=== PATIENT | female | born 1965 | race Caucasian/White ===

== ENCOUNTER → 2020-01-31 09:09 | Outpatient (CLI) | payer OTHER, SELFPAY ==
--- NOTE | ~2020-01-31 | MR_ITS ---
EXAMINATION: MR foot LT wo con DATE: 01/31/2020 09:47 INDICATION: Left foot pain. TECHNIQUE: Magnetic resonance imaging (MRI) of the left fore/mid foot was performed without intraveno us contrast. Sequences included sagittal T1-weighted FSE, sagittal fluid sensitive FSE STIR, coronal PD-weighted FS FSE, coronal T1-weighted FSE, axial PD-weighted FS FSE, and axial PD-weighted FSE. COMPARISON: Left foot radiographs dated 01/24/2020 FINDINGS: Bone alignment is normal. Normal marrow signal with no reactive edema, fracture or pathologic marrow replacing process. Joint spaces are normal with physiologic amount of fluid in the joint spaces.. Rubén roximately 19 x 15 x 6 mm region of intermediate immediate to low T1 signal and increased fluid signa l positioned between the heads of the first and second metatarsals and similar-appearing 15 x 11 x 5 mm region between the heads of the third and fourth metatarsals most consistent with intermetatarsal perineural fibrosis (Woodson's neuroma). There is some fibrosis and likely small adventitial bursa mechelle natasha ganglion cyst positioned plantar to the head of the fifth metatarsal. Similar ill-defined interme diate signal intensity likely fibrosis plantar to the sesamoids and head of the first metatarsal. Vis ualized portions of the flexor and extensor tendons as well as the Lisfranc ligament and collateral l igament complexes at the metatarsophalangeal joints are normal. Intrinsic musculature of the foot is unremarkable. IMPRESSION: 1. Intermetatarsal perineural fibrosis (Woodson's neuroma) between the heads of the first and second m etatarsals and third and fourth metatarsals. 2. Likely adventitial bursa versus ganglion cyst with some surrounding fibrosis in the plantar fat pa d underlying the head of the fifth metatarsal. Similar fibrosis plantar to the head of the first meta tarsal. Reviewed, dictated and finalized at location A. IMPRESSION: 1. Intermetatarsal perineural fibrosis (Woodson's neuroma) between the heads of the first and second metatarsals and third and fourth metatarsals. 2. Likely adventitial bursa versus ganglion cyst with some surrounding fibrosis in the plantar fat pad underlying the head of the fifth metatarsal. Similar fi brosis plantar to the head of the first metatarsal.
== END ==
PROVIDERS: PCP Physician Assistant; Visit Provider Orthopaedic Surgery
DX: M79.672 Pain in left foot (principal); G57.62 Lesion of plantar nerve, left lower limb; M89.9 Disorder of bone, unspecified
CPT/HCPCS: 73718

== ENCOUNTER → 2020-03-12 14:02 | Outpatient (CLI) | payer OTHER, SELFPAY ==
--- NOTE | ~2020-03-12 | XR_ITS ---
EXAMINATION: XR hip LT 1V w AP pelvis DATE: 03/12/2020 14:31 INDICATION: Left groin pain post injury TECHNIQUE: Anteroposterior view of the pelvis and anteroposterior, frog leg and cross-table lateral v iews of the left hip were obtained. COMPARISON: None. FINDINGS: Bone alignment is normal. No fracture. Left hip joint space is normal. 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 1.2 cm sclerotic lesion projects over the medial left iliac wing. Soft tissues are unremarkable. IMPRESSION: 1. No acute osseous abnormality. 2. 1.2 cm sclerotic lesion at the medial left iliac wing most likely representing a bone island. Louise elate with any prior outside imaging. If patient has had prior history of malignancy would consider b one scan for further evaluation. Reviewed, dictated and finalized at location A. IMPRESSION: 1. No acute osseous abnormality. 2. 1.2 cm sclerotic lesion at the medial left iliac wing most likely representi ng a bone island. Correlate with any prior outside imaging. If patient has had prior history of malignancy would consider bone scan for further evaluation.
== END ==
PROVIDERS: PCP Physician Assistant; Visit Provider Physician Assistant
DX: R93.7 Abnormal findings on diagnostic imaging of other parts of musculoskeletal system (principal); M25.559 Pain in unspecified hip
CPT/HCPCS: 72170; 73501; 73502

== ENCOUNTER 2020-04-18 09:15 | Outpatient (CLI) | payer OTHER, SELFPAY ==
--- NOTE | ~2020-04-18 | MM_ITS ---
EXAMINATION: MM screening mammo implant BI HISTORY: Screening mammogram TECHNIQUE: Craniocaudal and mediolateral oblique 3-D tomosynthesis images with implant displacement a nd synthetic 2-D images were generated. Craniocaudal and mediolateral oblique views of the breasts wi thout implant displacement were obtained using full field digital mammography. CAD analysis was submi tted and interpreted. COMPARISON: 04/21/2019, 05/31/2018 bilateral digital screening mammogram examinations BREAST PARENCHYMAL COMPOSITION: The breasts are heterogeneously dense, which may obscure small masses . FINDINGS: Status post bilateral augmentation mammoplasty. There is an approximately 1.5 cm posterior central upper left breast circumscribed mass.. Smaller cir cumscribed masses are suggested in each breast. Bilateral complete breast ultrasound examination is r ecommended. No malignant calcification, architectural distortion, skin thickening or retraction of either breast is evident. Suspicious interval change. IMPRESSION: 1. Bilateral breast masses 2. Bilateral complete breast ultrasound examination is recommended. BI-RADS Category 0: Incomplete: Needs additional imaging evaluation. Reviewed, dictated and finalized at location A.
== END 2020-04-18 09:16 | disposition home or self-care (01) ==
LOC: CHSIMG 09:17
PROVIDERS: PCP Physician Assistant; Visit Provider Obstetrics & Gynecology
DX: Z12.31 Encounter for screening mammogram for malignant neoplasm of breast (principal)
CPT/HCPCS: 77067

== ENCOUNTER 2020-04-27 08:46 | Outpatient (CLI) | payer OTHER, SELFPAY ==
--- NOTE | ~2020-04-27 | US_ITS ---
EXAMINATION: US breast BI complete HISTORY: Bilateral breast masses on screening mammogram TECHNIQUE: Complete bilateral breast ultrasound is performed. FINDINGS: Right breast: There are multiple circumscribed oval and round masses throughout the breast which are hypoechoic and anechoic. The largest is a hypoechoic mass measuring 8 mm x 5 mm at the 10:00 location 6 cm from the nipple with demonstrates posterior acoustic enhancement no internal vascularity. Left breast: There is a 1.5 cm oval, circumscribed, parallel, hypoechoic mass with posterior acoustic enhancement and no internal vascularity at the 11:00 location 5 cm from the nipple corresponding to the mass described on screening mammogram. In addition, there are multiple additional circumscribed o aj and round masses throughout the breast which are hypoechoic and anechoic, the largest of which me asures 12 mm. IMPRESSION: Multiple similar appearing bilateral breast masses, considered benign. Routine annual screening mammo graphy is recommended. BI-RADS Category 2: Benign finding(s). Reviewed, dictated and finalized at location A. IMPRESSION: Multiple similar appearing bilateral breast masses, considered benign. Routine annual screening mammography is recommended. BI-RADS Category 2: Benign finding(s).
== END 2020-04-27 08:47 | disposition home or self-care (01) ==
LOC: CHSIMG 08:48
PROVIDERS: PCP Physician Assistant; Visit Provider Obstetrics & Gynecology
DX: R92.8 Other abnormal and inconclusive findings on diagnostic imaging of breast (principal)
CPT/HCPCS: 76641

== ENCOUNTER 2021-04-29 11:53 | Outpatient (CLI) | payer OTHER, SELFPAY ==
--- NOTE | ~2021-04-29 | MM_ITS ---
EXAMINATION: MM scrn jailene implant BI w candace HISTORY: Screening mammogram TECHNIQUE: Craniocaudal and mediolateral oblique 3-D tomosynthesis images with implant displacement a nd synthetic 2-D images were generated. Craniocaudal and mediolateral oblique views of the breasts wi thout implant displacement were obtained using full field digital mammography. CAD analysis was submi tted and interpreted. COMPARISON: 04/27/2020, 04/18/2020, 04/21/2019, 05/31/2018 BREAST PARENCHYMAL COMPOSITION: The breasts are heterogeneously dense, which may obscure small masses . FINDINGS: Bilateral breast masses waxing and waning appearance and previously characterized as cysts. There is no evidence of suspicious mass, calcification, or architectural distortion to suggest malig arik in either breast. There has been no suspicious interval change. IMPRESSION: 1. No mammographic evidence of malignancy. 2. Recommend routine screening mammography in one year. BI-RADS Category 2: Benign finding(s). Reviewed, dictated and finalized at location A.
== END 2021-04-29 11:54 | disposition home or self-care (01) ==
LOC: CHSIMG 11:54
PROVIDERS: PCP Physician Assistant; Visit Provider Obstetrics & Gynecology
DX: Z12.31 Encounter for screening mammogram for malignant neoplasm of breast (principal)
CPT/HCPCS: 77063; 77067

== ENCOUNTER 2022-05-14 11:50 | Outpatient (CLI) | payer OTHER, SELFPAY ==
--- NOTE | ~2022-05-14 | MM_ITS ---
EXAMINATION: MM scrn jailene implant BI w candace HISTORY: Screening mammogram TECHNIQUE: Craniocaudal and mediolateral oblique 3-D tomosynthesis images with implant displacement a nd synthetic 2-D images were generated. Craniocaudal and mediolateral oblique views of the breasts wi thout implant displacement were obtained using full field digital mammography. CAD analysis was submi tted and interpreted. COMPARISON: 04/29/2021 BREAST PARENCHYMAL COMPOSITION: The breasts are heterogeneously dense, which may obscure small masses FINDINGS: There are bilateral subglandular silicone implants. There is no evidence of suspicious mass , calcification, or architectural distortion to suggest malignancy in either breast. There has been n o suspicious interval change. IMPRESSION: 1. No mammographic evidence of malignancy. 2. Recommend routine screening mammography in one year. BI-RADS Category 1: Negative Reviewed, dictated and finalized at location D.
== END 2022-05-14 11:51 | disposition home or self-care (01) ==
LOC: CHSIMG 11:52
PROVIDERS: PCP Physician Assistant; Visit Provider Obstetrics & Gynecology
DX: Z12.31 Encounter for screening mammogram for malignant neoplasm of breast (principal)
CPT/HCPCS: 77063; 77067

== ENCOUNTER 2023-05-18 08:39 | Outpatient (CLI) | payer OTHER, SELFPAY ==
--- NOTE | ~2023-05-18 | MM_ITS ---
EXAMINATION: MM scrn jailene implant BI w candace HISTORY: Screening mammogram TECHNIQUE: Craniocaudal and mediolateral oblique 3-D tomosynthesis images with implant displacement a nd synthetic 2-D images were generated. Craniocaudal and mediolateral oblique views of the breasts wi thout implant displacement were obtained using full field digital mammography. CAD analysis was submi tted and interpreted. COMPARISON: 05/14/2022, 04/29/2021 bilateral implant screening mammogram examinations BREAST PARENCHYMAL COMPOSITION: The breasts are heterogeneously dense, which may obscure small masses . FINDINGS: Status post bilateral augmentation mammoplasty. There is no evidence of suspicious mass, ca lcification, or architectural distortion to suggest malignancy in either breast. There has been no davidson spicious interval change. IMPRESSION: 1. No mammographic evidence of malignancy. 2. Recommend routine screening mammography in one year. BI-RADS Category 1: Negative Reviewed, dictated and finalized at location A.
== END 2023-05-18 08:40 | disposition home or self-care (01) ==
LOC: CHSIMG 08:45
PROVIDERS: PCP Physician Assistant; Visit Provider Obstetrics & Gynecology
DX: Z12.31 Encounter for screening mammogram for malignant neoplasm of breast (principal)
CPT/HCPCS: 77063; 77067

== ENCOUNTER 2023-10-26 08:05 | Outpatient (CLI) | payer OTHER, SELFPAY ==
--- NOTE | ~2023-10-26 | CT_ITS ---
CT Scan of the Chest without Contrast: Clinical Indication: Lung cancer screening, personal history of nicotine dependence Technique: Contiguous sections were acquired throughout the chest without intravenous contrast. Dose reduction technique was used on this scan by utilizing automated exposure control and iterative recon struction technique. The dose-length product (DLP) was 53.04 mGy-cm. Findings: There is no evidence of any significant mediastinal, hilar or axillary lymphadenopathy. The mediastin al soft tissues appear normal. There is no evidence of pleural or pericardial effusion. The lungs are clear, aside from calcified left upper lobe granuloma. Images through the upper abdomen reveal no abnormalities. 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 Impression: Lung RADS 1: Negative. 12 month follow-up screening CT advised. Reviewed, dictated and finalized at [facility]. Impression: Lung RADS 1: Negative. 12 month follow-up screening CT advised.
== END 2023-10-26 08:06 ==
LOC: MICIMG 08:06
PROVIDERS: PCP Physician Assistant; Visit Provider Physician Assistant
DX: Z12.2 Encounter for screening for malignant neoplasm of respiratory organs (principal); Z87.891 Personal history of nicotine dependence
CPT/HCPCS: 71271

== ENCOUNTER 2024-05-20 12:27 | Outpatient (CLI) | payer OTHER, SELFPAY ==
--- NOTE | ~2024-05-20 | MM_ITS ---
EXAMINATION: MM scrn jailene implant BI w candace HISTORY: Comparison to multiple prior studies sequentially, with oldest reviewed study dated 021. TECHNIQUE: Craniocaudal and mediolateral oblique 3-D tomosynthesis images with implant displacement a nd synthetic 2-D images were generated. Craniocaudal and mediolateral oblique views of the breasts wi thout implant displacement were obtained using full field digital mammography. CAD analysis was submi tted and interpreted. COMPARISON: Comparison to multiple prior studies sequentially, with oldest reviewed study dated 10/2020. BREAST PARENCHYMAL COMPOSITION: Dense: The breasts are heterogeneously dense, which may obscure small masses FINDINGS: There are developing bilateral breast masses. There is a enlarging right axillary lymph nod e. Stable appearance to bilateral breast implants which are subglandular. No suspicious calcification s or architectural distortion. IMPRESSION: 1. Developing bilateral breast masses. 2. Additional mammographic views and possible breast ultrasound are recommended. BI-RADS Category 0: Incomplete: Needs additional imaging evaluation. Reviewed, dictated and finalized at location B. IMPRESSION: 1. Developing bilateral breast masses. 2. Additional mammographic views and possible breast ultrasound are recommended . BI-RADS Category 0: Incomplete: Needs additional imaging evaluation.
== END 2024-05-20 12:28 | disposition home or self-care (01) ==
LOC: CHSIMG 12:29
PROVIDERS: PCP Physician Assistant; Visit Provider Obstetrics & Gynecology
DX: Z12.31 Encounter for screening mammogram for malignant neoplasm of breast (principal); R92.8 Other abnormal and inconclusive findings on diagnostic imaging of breast
CPT/HCPCS: 77063; 77067

== ENCOUNTER 2024-05-27 08:53 | Outpatient (CLI) | payer OTHER, SELFPAY ==
--- NOTE | ~2024-05-27 | MMUS_ITS ---
EXAMINATION: MM diag jailene implant BI w candace, US breast BI complete HISTORY: Possible bilateral breast masses TECHNIQUE: Additional 3-D tomosynthesis images of the breasts were performed and synthetic 2-D images were generated. CAD analysis was submitted and interpreted. High resolution limited bilateral breast ultrasound was performed. COMPARISON: 05/20/2024, 05/18/2023, 05/14/2022 BREAST PARENCHYMAL COMPOSITION:Dense: The breasts are heterogeneously dense, which may obscure small masses. FINDINGS: MAMMOGRAPHIC FINDINGS: Spot compression views demonstrate persistent probable low-density 1.5 cm mass at the inner left suba reolar region. There is also a suspected persistent 0.8 cm low-density oval mass at the upper, outer right breast. ULTRASOUND: At the 9:00 position right breast, 4 cm from the nipple, there is a 7 x 4 x 5 mm circumscribed oval c yst. At the 10:00 position right breast, 7 cm from the nipple, there is a 5 x 3 x 5 mm hypoechoic ovo id circumscribed mass, wider than tall with posterior through transmission. At the left breast 9:00 subareolar region, there is a 1.8 x 0.7 x 1.4 cm ovoid circumscribed homogene ous wider than tall mass with posterior through transmission. At the 9:00 left periorbital region, th ere is a 1.0 x 0.4 x 0.9 cm simple cyst. IMPRESSION: Probable benign bilateral breast masses, as above, measuring 1.8 cm in maximum diameter of the left 9:00 subareolar region, and 0.5 cm in maximum diameter at the 10:00 position right breast. Six-month follow-up ultrasound recommended to assure stability. BI-RADS category 3, probably benign findings. Reviewed, dictated and finalized at location M. IMPRESSION: Probable benign bilateral breast masses, as above, measuring 1.8 cm in maximum diameter of the left 9:00 subareolar region, and 0.5 cm in maximum diameter at the 10:00 position right breast. Six-month follow-up ultrasound recommended to assure stability. BI-RADS category 3, probably benign findings.
== END 2024-05-27 08:54 | disposition home or self-care (01) ==
LOC: CHSIMG 08:54
PROVIDERS: PCP Physician Assistant; Visit Provider Obstetrics & Gynecology
DX: R92.8 Other abnormal and inconclusive findings on diagnostic imaging of breast (principal); N63.20 Unspecified lump in the left breast, unspecified quadrant; N63.10 Unspecified lump in the right breast, unspecified quadrant
CPT/HCPCS: 76641; 77062; 77066; G0279

== ENCOUNTER 2024-10-27 08:07 | Outpatient (CLI) | payer OTHER, SELFPAY ==
--- NOTE | ~2024-10-27 | CT_ITS ---
CT Scan of the Chest without Contrast: Clinical Indication: Lung cancer screening, nicotine dependence Technique: Contiguous sections were acquired throughout the chest without intravenous contrast. Dose reduction technique was used on this scan by utilizing automated exposure control and iterative recon struction technique. The dose-length product (DLP) was 61.56 mGy-cm. COMPARISON: 10/26/2023 Findings: There is no evidence of any significant mediastinal, hilar or axillary lymphadenopathy. The mediastin al soft tissues appear normal. There is no evidence of pleural or pericardial effusion. The lungs are clear. No pulmonary nodules or infiltrates are noted. Images through the upper abdomen reveal no abnormalities. Stable butterfly vertebral bodies at T10 an d T11. Impression: Lung RADS 1: Negative. 12 month follow-up screening CT advised. Reviewed, dictated and finalized at [facility]. Impression: Lung RADS 1: Negative. 12 month follow-up screening CT advised.
== END 2024-10-27 08:08 | disposition home or self-care (01) ==
LOC: MICIMG 08:08
PROVIDERS: PCP Physician Assistant; Visit Provider Physician Assistant
DX: Z12.2 Encounter for screening for malignant neoplasm of respiratory organs (principal); Z87.891 Personal history of nicotine dependence
CPT/HCPCS: 71271